=== PATIENT | male | born 1990 | race Caucasian/White ===

== ENCOUNTER 2017-12-27 08:25 | Day surgery (SDC) | payer BC ==
[~2017-12-27] VITALS: Ht 175.3 cm; Wt 89.6 kg
[2017-12-27 08:54] VITALS: BP 141/75; PULSE 63; TEMP 98.7
[2017-12-27] MEDS ORDERED: MULTI VITAMINS1 TAB PO (09:04)
[2017-12-27] MEDS ORDERED: GLUCOSAMINE & C1 CA2 PO (09:05)
[2017-12-27] MEDS ORDERED: OMEGA-3 1000 MG1 CAP PO (09:05)
[2017-12-27 10:10] VITALS: BP 129/77; PULSE 78
[2017-12-27 10:25] VITALS: BP 122/76; PULSE 90
[2017-12-27 10:40] VITALS: BP 112/49; PULSE 69
[2017-12-27] MEDS ORDERED: PREPARATIO1 SUPP.REC RC (10:44)
[2017-12-27] MEDS ORDERED: METAMUCIL3.4 GM/Dos PO (10:45)
[2017-12-27 10:55] VITALS: BP 113/81; PULSE 74
== END 2017-12-27 11:15 | disposition home or self-care (01) ==
LOC: SDCO 08:25
DX: K64.0 First degree hemorrhoids (principal); K59.00 Constipation, unspecified; R19.7 Diarrhea, unspecified; K92.1 Melena; Z80.0 Family history of malignant neoplasm of digestive organs
CPT/HCPCS: OP; J2250; J3010; J7030

== ENCOUNTER 2019-06-18 08:33 | Emergency (ER) | payer BC ==
[~2019-06-18] VITALS: Ht 175.3 cm; Wt 86.4 kg
[~2019-06-18 08:33] MED LIST: GLUCOSAMINE & C1 CA2 PO; METAMUCIL3.4 GM/Dos PO; MULTI VITAMINS1 TAB PO; OMEGA-3 1000 MG1 CAP PO; PREPARATIO1 SUPP.REC RC
[2019-06-18 08:36] VITALS: TEMP 98.9
[2019-06-18 09:13] LABS: BASO % 0.3 % (0.0-2.0); EOS # 0.2 (0.0-0.7); EOS % 2.5 % (0-4.0); GRAN # 4.4 (1.4-6.5); GRAN % 68.9 % (42.2-75.2); HEMATOCRIT 44.9 % (42.0-52.0); HEMOGLOBIN 15.3 g/dl (13.5-18.0); LYMPH # 1.4 (1.2-3.4); LYMPH % 22.3 % (20.0-51.0); MEAN CELL VOLUME 85 fl (80.0-100.0); MEAN CORPUSCULAR HEMOGLOBIN 29 pg (27.0-31.0); MEAN CORPUSCULAR HGB CONC 34 g/dl (33.0-37.0); MEAN PLATELET VOLUME 9.8 fl (7.4-10.4); MONO # 0.4 (0.1-0.6); MONO % 5.7 % (1.7-9.3); PLATELET COUNT 233 K/mm3 (130-400); RED BLOOD COUNT 5.26 M/mm3 (4.20-5.60); REDCELL DISTRIBUTION WIDTH-CV 12.1 % (11.5-14.5)
[2019-06-18 09:27] LABS: ALANINE AMINOTRANSFERASE 28 U/L (21-72); ALBUMIN 4.3 gm/dL (3.5-5.0); ALKALINE PHOSPHATASE 60 U/L (50-136); ANION GAP 7 mmol/L (7-16); AST,SGOT 28 U/L (15-37); BILIRUBIN,TOTAL 0.5 mg/dL (0.0-1.0); BLOOD UREA NITROGEN 14 mg/dL (9-20); CARBON DIOXIDE 29 mmol/L (22-30); CHLORIDE 104 mmol/L (98-107); CREATININE, serum 1.02 (0.66-1.25); GLUCOSE 84 mg/dL (74-106); POTASSIUM 4.5 mmol/L (3.4-5.0); SODIUM 139 mmol/L (137-145); TOTAL PROTEIN 7.2 gm/dL (6.4-8.2)
[2019-06-18 09:30] LABS: C-REACTIVE PROTEIN < 0.5 mg/dL (0.0-0.9)
[2019-06-18 09:44] LABS: ERYTHROCYTE SEDIMENTATION RATE 1 mm/hr (0-15)
[2019-06-18 11:31] VITALS: BP 133/76; PULSE 78
== END 2019-06-18 10:36 | disposition home or self-care (01) ==
LOC: COL.ER 08:33
PROVIDERS: Emergency Medicine
DX: R20.2 Paresthesia of skin (principal)
CPT/HCPCS: A9585

== ENCOUNTER → 2019-08-13 | Outpatient (CLI) | payer BC | LOC: MHCPAIN 13:34 | DX: M47.817 Spondylosis without myelopathy or radiculopathy, lumbosacral region (principal); M54.16 Radiculopathy, lumbar region | CPT/HCPCS: G0463 ==

== ENCOUNTER → 2021-06-18 | Outpatient (CLI) | payer BC | LOC: MHCPAIN 10:31 | DX: M47.817 Spondylosis without myelopathy or radiculopathy, lumbosacral region (principal); M54.16 Radiculopathy, lumbar region; M54.32 Sciatica, left side; G57.01 Lesion of sciatic nerve, right lower limb | CPT/HCPCS: G0463 ==

== ENCOUNTER → 2021-06-30 | Outpatient (CLI) | payer BC | LOC: MHCPAIN 09:26 | DX: M79.18 Myalgia, other site (principal); M53.3 Sacrococcygeal disorders, not elsewhere classified; M54.50 Low back pain, unspecified | CPT/HCPCS: J1040 ==

== ENCOUNTER → 2021-07-14 | Outpatient (CLI) | payer BC | LOC: MHCPAIN 09:27 | DX: M47.817 Spondylosis without myelopathy or radiculopathy, lumbosacral region (principal); M54.16 Radiculopathy, lumbar region; M53.3 Sacrococcygeal disorders, not elsewhere classified; M54.32 Sciatica, left side | CPT/HCPCS: G0463 ==

== ENCOUNTER → 2021-08-26 | Outpatient (CLI) | payer BC | LOC: MHCPAIN 09:51 | DX: M47.816 Spondylosis without myelopathy or radiculopathy, lumbar region (principal); M53.3 Sacrococcygeal disorders, not elsewhere classified; M54.16 Radiculopathy, lumbar region; G57.02 Lesion of sciatic nerve, left lower limb | CPT/HCPCS: G0463 ==

== ENCOUNTER → 2021-09-08 | Outpatient (CLI) | payer BC | LOC: MHCPAIN 12:52 | DX: M47.817 Spondylosis without myelopathy or radiculopathy, lumbosacral region (principal); M53.3 Sacrococcygeal disorders, not elsewhere classified; M54.16 Radiculopathy, lumbar region | CPT/HCPCS: J1100; Q9967 ==

== ENCOUNTER → 2021-10-05 | Outpatient (CLI) | payer BC | LOC: MHCPAIN 12:04 | DX: M54.50 Low back pain, unspecified (principal); M53.3 Sacrococcygeal disorders, not elsewhere classified ==

== ENCOUNTER → 2021-11-05 | Outpatient (CLI) | payer BC | LOC: MHCPAIN 08:48 | DX: M47.817 Spondylosis without myelopathy or radiculopathy, lumbosacral region (principal); M54.50 Low back pain, unspecified; M53.3 Sacrococcygeal disorders, not elsewhere classified | CPT/HCPCS: G0463 ==

== ENCOUNTER → 2021-11-19 | Outpatient (CLI) | payer BC | LOC: MHCPAIN 07:25 | DX: M47.817 Spondylosis without myelopathy or radiculopathy, lumbosacral region (principal); M54.50 Low back pain, unspecified; M53.3 Sacrococcygeal disorders, not elsewhere classified | CPT/HCPCS: G0463; J1100; J2250; J3010 ==

== ENCOUNTER → 2022-01-18 | Outpatient (CLI) | payer BC | LOC: MHCPAIN 09:20 | DX: M47.817 Spondylosis without myelopathy or radiculopathy, lumbosacral region (principal); M54.50 Low back pain, unspecified; M53.3 Sacrococcygeal disorders, not elsewhere classified | CPT/HCPCS: G0463 ==

== ENCOUNTER → 2022-06-14 | Outpatient (CLI) | payer BC | LOC: MHCPAIN 10:00 | DX: M47.892 Other spondylosis, cervical region (principal); M54.12 Radiculopathy, cervical region; M54.2 Cervicalgia; M53.3 Sacrococcygeal disorders, not elsewhere classified | CPT/HCPCS: G0463 ==